=== PATIENT | female | born 1985 | race Caucasian/White ===

== ENCOUNTER 2016-06-08 10:55 | Emergency (ER) | payer MEDICAID, OTHER ==
[~2016-06-08] VITALS: Ht 154.9 cm; Wt 53.5 kg
[~2016-06-08 10:55] MED LIST: MOTR200T44 PO
[2016-06-08 11:11] VITALS: BP 122/72
[2016-06-08] MEDS ORDERED: THERPAK PO (11:19)
[2016-06-08] MEDS ORDERED: LIDO1SOL7 OR (11:33)
== END 2016-06-08 11:55 | disposition home or self-care (01) ==
LOC: M ED 11:44
DX: J02.9 Acute pharyngitis, unspecified (principal); F17.210 Nicotine dependence, cigarettes, uncomplicated; Z86.32 Personal history of gestational diabetes

== ENCOUNTER → 2017-05-25 | Outpatient (CLI) | payer OTHER | LOC: M WUC 12:37 | DX: S83.412A Sprain of medial collateral ligament of left knee, initial encounter (principal); X58.XXXA Exposure to other specified factors, initial encounter; Y92.9 Unspecified place or not applicable | CPT/HCPCS: 73564 ==

== ENCOUNTER 2017-05-26 11:34 | Emergency (ER) | payer OTHER ==
[2017-05-26] MEDS: ONDANSETRON 4 MG ORAL DISINTEGRATING TAB (S0181) PO (12:30)
[2017-05-26 12:58] LABS: BASO % 0.3 % (0.0-1.0); EOS # 0.1 10^3/uL (0.0-0.50); EOS % 0.5 % (0.0-3.0); HEMATOCRIT 41.1 % (36.0-47.0); IMMATURE GRANULOCYTE % 0.3 % (0-3.0); LYMPH # 1.9 10^3/uL (1.5-4.5); LYMPH % 14.5 % (24.0-44.0); MEAN CORPUSCULAR HEMOGLOBIN 31.4 pg (27.0-33.0); MEAN CORPUSCULAR HGB CONC 34.1 g/dl (32.0-36.5); MEAN CORPUSCULAR VOLUME 92.2 fl (80.0-96.0); MONO # 0.7 10^3/uL (0.0-0.8); MONO % 5.2 % (0.0-5.0); NEUTROPHILS # 10.2 10^3/uL (1.8-7.7); NEUTROPHILS % 79.2 % (36.0-66.0); PLATELET COUNT, AUTOMATED 315 10^3/uL (150-450); RED BLOOD COUNT 4.46 10^6/uL (4.00-5.40); RED CELL DISTRIBUTION WIDTH 13.2 % (11.5-14.5); WHITE BLOOD COUNT 12.8 10^3/uL (4.0-10.0)
[2017-05-26 13:25] LABS: ANION GAP 5 MEQ/L (8-16); BLOOD UREA NITROGEN 12 MG/DL (7-18); CALCIUM LEVEL 8.8 MG/DL (8.5-10.1); CARBON DIOXIDE LEVEL 27 MEQ/L (21-32); CHLORIDE LEVEL 107 MEQ/L (98-107); CREATININE FOR GFR 0.66 MG/DL (0.55-1.30); GLOMERULAR FILTRATION RATE > 60.0 (>60); GLUCOSE, FASTING 93 MG/DL (70-100); POTASSIUM SERUM 4.5 MEQ/L (3.5-5.1); SODIUM LEVEL 139 MEQ/L (136-145)
[2017-05-26 13:27] LABS: AMPHETAMINES LEVEL URINE NEGATIVE (NEGATIVE); BARBITURATES URINE NEGATIVE (NEGATIVE); BENZODIAZEPINES URINE NEGATIVE (NEGATIVE); CANNABINOIDS URINE POSITIVE (NEGATIVE); COCAINE METABOLITE URINE NEGATIVE (NEGATIVE); METHADONE URINE NEGATIVE (NEGATIVE); OPIATES URINE NEGATIVE (NEGATIVE); PHENCYCLIDINE URINE NEGATIVE (NEGATIVE)
[2017-05-27 08:59] LABS: BEDSIDE GLUCOSE 116 MG/DL (70-105)
== END 2017-05-26 14:34 | disposition home or self-care (01) ==
LOC: M ED 11:34
DX: R55 Syncope and collapse (principal); F17.210 Nicotine dependence, cigarettes, uncomplicated; Z86.32 Personal history of gestational diabetes
CPT/HCPCS: 93005

== ENCOUNTER 2018-04-08 13:39 | Emergency (ER) | payer MEDICAID, OTHER, SELFPAY ==
[~2018-04-08] VITALS: Ht 154.9 cm; Wt 52.3 kg
[2018-04-08 13:39] VITALS: BP 138/75
[~2018-04-08 13:39] MED LIST changes: +LIDO1SOL7 OR; +THERPAK PO
[2018-04-08] MEDS ORDERED: TESS100C PO (14:34)
== END 2018-04-08 14:45 | disposition home or self-care (01) ==
LOC: M ED 13:39
DX: J06.9 Acute upper respiratory infection, unspecified (principal); Z20.828 Contact with and (suspected) exposure to other viral communicable diseases; F17.210 Nicotine dependence, cigarettes, uncomplicated

== ENCOUNTER 2018-07-24 10:39 | Emergency (ER) | payer SELFPAY ==
[~2018-07-24] VITALS: Ht 154.9 cm; Wt 52.2 kg
[~2018-07-24 10:39] MED LIST changes: -LIDO1SOL7 OR; +LIDO1SOL8 OR; +TESS100C PO
[2018-07-24] MEDS ORDERED: cefTRIAXone SOD 1 GM in D5W MINI-BAG PLUS 50 ML IV ONE (11:30)
[2018-07-24] MEDS ORDERED: KETOROLAC 30 MG/ML VIAL (J1885) IV ONE (11:30)
[2018-07-24] MEDS ORDERED: NS 1,000 ML IV ONE (11:30)
[2018-07-24] MEDS ORDERED: ONDANSETRON 4MG/2ML VIAL (J2405) IV ONE (11:30)
[2018-07-24 11:56] LABS: BASO % 0.4 % (0.0-1.0); EOS # 0.1 10^3/uL (0.0-0.50); EOS % 0.9 % (0.0-3.0); HEMATOCRIT 40.5 % (36.0-47.0); HEMOGLOBIN 13.7 g/dl (12.0-15.5); LYMPH # 2.9 10^3/uL (1.5-4.5); LYMPH % 28.4 % (24.0-44.0); MEAN CORPUSCULAR HEMOGLOBIN 31.7 pg (27.0-33.0); MEAN CORPUSCULAR HGB CONC 33.8 g/dl (32.0-36.5); MEAN CORPUSCULAR VOLUME 93.8 fl (80.0-96.0); MONO # 0.7 10^3/uL (0.0-0.8); MONO % 6.6 % (0.0-5.0); NEUTROPHILS # 6.4 10^3/uL (1.8-7.7); NEUTROPHILS % 63.5 % (36.0-66.0); PLATELET COUNT, AUTOMATED 300 10^3/uL (150-450); RED BLOOD COUNT 4.32 10^6/uL (4.00-5.40); WHITE BLOOD COUNT 10.1 10^3/uL (4.0-10.0)
--- NOTE | 2018-07-24 12:15 | REP ---
Renal ultrasound for right flank pain: The right kidney measures 9.4 x 5.2 x 4.0 cm. Left kidney measures 10.2 x 4.6 x 4.7 cm. The kidneys are normal size. Renal cortical echogenicity is normal bilaterally. There are no renal calculi. There is no hydronephrosis. There are no solid or cystic renal masses. There are vascular artifacts in the renal vandana bilaterally, of no clinical significance. Bladder ultrasound: The bladder is incompletely distended and cannot be further evaluated. Impression: Negative renal ultrasound. Electronically Signed by Thor Ackerman MD 07/24/2018 12:06 P
[2018-07-24 12:29] LABS: BLOOD UREA NITROGEN 5 MG/DL (7-18); CREATININE FOR GFR 0.66 MG/DL (0.55-1.30); GLOMERULAR FILTRATION RATE > 60.0 (>60); GLUCOSE, FASTING 90 MG/DL (70-100); SODIUM LEVEL 141 MEQ/L (136-145)
[2018-07-24 12:30] LABS: CALCIUM LEVEL 8.7 MG/DL (8.5-10.1); CARBON DIOXIDE LEVEL 26 MEQ/L (21-32); CHLORIDE LEVEL 109 MEQ/L (98-107); POTASSIUM SERUM 3.9 MEQ/L (3.5-5.1)
[2018-07-24] MEDS ORDERED: CIPR-249 PO (13:26)
[2018-07-24] MEDS ORDERED: IBUP-1022 PO (13:26)
[2018-07-24 14:05] VITALS: BP 119/87
== END 2018-07-24 14:11 | disposition home or self-care (01) ==
LOC: M ED 10:39
DX: N10 Acute pyelonephritis (principal); N39.0 Urinary tract infection, site not specified; F17.210 Nicotine dependence, cigarettes, uncomplicated
CPT/HCPCS: 76775; 80048; 81001; 85025; 96365; 96366; 96375; 99284; J0696; J1885; J2405

== ENCOUNTER 2018-08-18 08:14 | Emergency (ER) | payer SELFPAY ==
[~2018-08-18] VITALS: Ht 154.9 cm; Wt 50.0 kg
[~2018-08-18 08:14] MED LIST changes: +CIPR-249 PO; +IBUP-1022 PO
[2018-08-18] MEDS ORDERED: AUGMENTIN 875 MG TAB PO ONE (09:30)
[2018-08-18] MEDS ORDERED: ONDANSETRON 4 MG ORAL DISINTEGRATING TAB (Q0162 PER 1MG) PO ONE (09:30)
[2018-08-18] MEDS ORDERED: AUGM875T28 PO (09:30)
[2018-08-18] MEDS ORDERED: NAPROXEN 250 MG TAB PO ONE (09:30)
[2018-08-18] MEDS ORDERED: ZOFR4TAB16 PO (09:30)
[2018-08-18] MEDS ORDERED: NAPR-837 PO (09:30)
[2018-08-18] MEDS ORDERED: ACETAMINOPHEN 500 MG TAB PO ONE (09:30)
[2018-08-18 09:33] VITALS: BP 118/82
== END 2018-08-18 09:42 | disposition home or self-care (01) ==
LOC: M ED 08:14
DX: J01.90 Acute sinusitis, unspecified (principal); H66.93 Otitis media, unspecified, bilateral; J44.9 Chronic obstructive pulmonary disease, unspecified; F17.210 Nicotine dependence, cigarettes, uncomplicated
CPT/HCPCS: 87880; 99284; Q0162

== ENCOUNTER 2019-11-30 00:51 | Emergency (ER) | payer SELFPAY ==
[~2019-11-30] VITALS: Ht 154.9 cm; Wt 53.9 kg
[2019-11-30 00:51] VITALS: BP 134/83
== END 2019-11-30 01:58 | disposition left against medical advice (07) ==
LOC: M ED 00:51
DX: Z53.21 Procedure and treatment not carried out due to patient leaving prior to being seen by health care provider (principal)

== ENCOUNTER → 2019-11-30 | Outpatient (REF) | payer OTHER ==
[~2019-11-30] MED LIST changes: +AUGM875T28 PO; -LIDO1SOL8 OR; +LIDO2SOL17 OR; +NAPR-837 PO; +ZOFR4TAB16 PO
[2019-11-30 19:06] LABS: APPEARANCE, URINE CLOUDY (CLEAR); BACTERIA, URINE AUTO 1+ (NEGATIVE); BILIRUBIN, URINE AUTO NEGATIVE (NEGATIVE); BLOOD, URINE BLOOD 1+ (NEGATIVE); COLOR, URINE YELLOW (YELLOW); GLUCOSE, URINE (UA) AUTO NEGATIVE (NEGATIVE); KETONE, URINE AUTO NEGATIVE (NEGATIVE); LEUKOCYTE ESTERASE, URINE AUTO 2+ (NEGATIVE); MUCUS, URINE SMALL (NEGATIVE); NITRITE, URINE AUTO POSITIVE (NEGATIVE); PROTEIN, URINE AUTO NEGATIVE (NEGATIVE); RBC, URINE AUTO 5 /HPF (0-3); SPECIFIC GRAVITY URINE AUTO 1.019 (1.002-1.035); SQUAMOUS EPITHELIAL CELL UR AU 14 /HPF (0-6); UROBILINOGEN, URINE AUTO 0.2 mg/dL (0.0-2.0); WBC, URINE AUTO 27 /HPF (0-3)
== END ==
LOC: M LAB REF 18:01
PROVIDERS: ATTEND Physician Assistant Medical
DX: N39.0 Urinary tract infection, site not specified (principal)

== ENCOUNTER 2020-08-09 15:23 | Emergency (ER) | payer OTHER ==
[~2020-08-09] VITALS: Ht 154.9 cm; Wt 50.7 kg
[2020-08-09] MEDS ORDERED: EPINEPHrine INJ 1 MG/ML 1ML AMP As Ordered ONE (15:28)
[2020-08-09] MEDS ORDERED: EPINEPHrine INJ 1 MG/ML 1ML AMP IM STA (15:30)
[2020-08-09] MEDS ORDERED: FAMOTIDINE INJ 20MG/2ML VIAL (S0028 PER 1) As Ordered ONE (15:30)
[2020-08-09] MEDS ORDERED: diphenhydrAMINE 50MG/ML VIAL (J1200) IV ONE (15:30)
[2020-08-09] MEDS ORDERED: diphenhydrAMINE 50MG/ML VIAL (J1200) As Ordered ONE (15:30)
[2020-08-09] MEDS ORDERED: FAMOTIDINE INJ 20MG/2ML VIAL (S0028 PER 1) IVP ONE (15:30)
[2020-08-09] MEDS ORDERED: ONDANSETRON 4MG/2ML VIAL As Ordered ONE (15:34)
[2020-08-09] MEDS ORDERED: methylPREDNISolone 125MG 2ML VIAL IV ONE (15:35)
[2020-08-09] MEDS ORDERED: ONDANSETRON 4MG/2ML VIAL IV ONE (15:35)
[2020-08-09] MEDS ORDERED: IPRATROPIUM 0.5MG/ALBUTEROL 2.5MG INH SOL UD 3ML (DUONEB) NEB ONE (15:40)
[2020-08-09 15:47] LABS: HEMATOCRIT 49.6 % (36.0-47.0); HEMOGLOBIN 17.1 g/dl (12.0-15.5); MEAN CORPUSCULAR HEMOGLOBIN 32.4 pg (27.0-33.0); MEAN CORPUSCULAR HGB CONC 34.5 g/dl (32.0-36.5); MEAN CORPUSCULAR VOLUME 93.9 fl (80.0-96.0); PLATELET COUNT, AUTOMATED 405 10^3/uL (150-450); RED BLOOD COUNT 5.28 10^6/uL (4.00-5.40); WHITE BLOOD COUNT 11.3 10^3/uL (4.0-10.0)
[2020-08-09 15:49] VITALS: O2SAT 96
[2020-08-09 16:10] LABS: ALBUMIN 4.1 GM/DL (3.2-5.2); ALT/SGPT 20 U/L (12-78); BILIRUBIN,DIRECT 0.3 MG/DL (0.0-0.2); BILIRUBIN,TOTAL 1.1 MG/DL (0.2-1.0); BLOOD UREA NITROGEN 8 MG/DL (7-18); CALCIUM LEVEL 9.4 MG/DL (8.5-10.1); CARBON DIOXIDE LEVEL 24 MEQ/L (21-32); CHLORIDE LEVEL 110 MEQ/L (98-107); CREATININE FOR GFR 0.77 MG/DL (0.55-1.30); GLOMERULAR FILTRATION RATE > 60.0 (>60); GLUCOSE, FASTING 128 MG/DL (70-100); POTASSIUM SERUM 4.1 MEQ/L (3.5-5.1); SODIUM LEVEL 141 MEQ/L (136-145); TOTAL PROTEIN 7.2 GM/DL (6.4-8.2)
[2020-08-09 16:14] LABS: HCG, SERUM QUALITATIVE NEGATIVE (NEGATIVE)
[2020-08-09 16:19] LABS: ATYPICAL LYMPH 8 % (0-5); EOSINOPHILS 1 % (0-3); LYMPHOCYTES 41 % (16-44); MONOCYTES 3 % (0-5); NEUTROPHILS 46 % (28-66); PLATELET ESTIMATE NORMAL (NORMAL)
[2020-08-09 16:20] LABS: PLATELET CLUMPS SMALL AMT
--- NOTE | 2020-08-09 16:33 | REP ---
INDICATION: sob. COMPARISON: None. TECHNIQUE: Single portable AP view of the chest was performed. FINDINGS: There is no acute infiltrate or pulmonary edema. Lungs are clear. The heart is not significantly enlarged. The mediastinal silhouette is unremarkable. The visualized osseous structures are intact. IMPRESSION: No acute pulmonary disease. <Electronically signed by Thor Ness > 08/09/20 [id number]
[2020-08-09] MEDS ORDERED: EPIP0.3I2 IM (18:20)
[2020-08-09 18:35] VITALS: BP 133/83
--- NOTE | 2020-08-09 20:34 | ECGEPIP ---
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
== END 2020-08-09 18:44 | disposition home or self-care (01) ==
LOC: M ED 15:23
DX: T78.2XXA Anaphylactic shock, unspecified, initial encounter (principal); Y92.9 Unspecified place or not applicable; Y93.9 Activity, unspecified; F17.200 Nicotine dependence, unspecified, uncomplicated; F12.10 Cannabis abuse, uncomplicated
CPT/HCPCS: 71045; 80048; 80076; 84703; 85025; 93005; 93041; 94640; 94760; 96372; 96374; 96375; 99285; J0171; J1200; J2405; J2930

== ENCOUNTER → 2020-11-07 | Outpatient (REF) | payer OTHER ==
[~2020-11-07] MED LIST changes: +EPIP0.3I2 IM
[2020-11-07 16:51] LABS: APPEARANCE, URINE CLOUDY (CLEAR); BACTERIA, URINE AUTO 1+ (NEGATIVE); BILIRUBIN, URINE AUTO NEGATIVE (NEGATIVE); BLOOD, URINE BLOOD 2+ (NEGATIVE); COLOR, URINE AMBER (YELLOW); GLUCOSE, URINE (UA) AUTO NEGATIVE (NEGATIVE); KETONE, URINE AUTO NEGATIVE (NEGATIVE); LEUKOCYTE ESTERASE, URINE AUTO 2+ (NEGATIVE); MUCUS, URINE SMALL (NEGATIVE); NITRITE, URINE AUTO POSITIVE (NEGATIVE); PROTEIN, URINE AUTO 1+ mg/dL (NEGATIVE); RBC, URINE AUTO 14 /HPF (0-3); SPECIFIC GRAVITY URINE AUTO 1.023 (1.002-1.035); SQUAMOUS EPITHELIAL CELL UR AU 17 /HPF (0-6); UROBILINOGEN, URINE AUTO 0.2 mg/dL (0.0-2.0); WBC, URINE AUTO 11 /HPF (0-3)
== END ==
LOC: M LAB REF 15:13
PROVIDERS: ATTEND Physician Assistant
DX: N39.0 Urinary tract infection, site not specified (principal)

== ENCOUNTER 2021-10-20 18:42 | Emergency (ER) | payer OTHER ==
[~2021-10-20] VITALS: Ht 154.9 cm; Wt 47.3 kg
[2021-10-20] MEDS ORDERED: ONDANSETRON 4MG 2ML VIAL IV ONE (20:05)
[2021-10-20] MEDS ORDERED: MORPHINE 4 MG/ML 1ML VIAL/SYRINGE IV ONE (20:05)
[2021-10-20 20:17] LABS: HCG, SERUM QUALITATIVE NEGATIVE (NEGATIVE)
[2021-10-20 20:23] LABS: BASO % 0.3 % (0.0-1.0); EOS # 0.8 10^3/uL (0.0-0.5); EOS % 8.5 % (0.0-3.0); HEMATOCRIT 42.6 % (36.0-47.0); HEMOGLOBIN 14.8 g/dl (12.0-15.5); LYMPH # 1.8 10^3/uL (1.5-5.0); LYMPH % 18.6 % (24.0-44.0); MEAN CORPUSCULAR HEMOGLOBIN 32.5 pg (27.0-33.0); MEAN CORPUSCULAR HGB CONC 34.7 g/dl (32.0-36.5); MEAN CORPUSCULAR VOLUME 93.4 fl (80.0-96.0); MONO # 0.8 10^3/uL (0.0-0.8); MONO % 8.2 % (2.0-8.0); NEUTROPHILS # 6.2 10^3/uL (1.5-8.5); NEUTROPHILS % 64.1 % (36.0-66.0); PLATELET COUNT, AUTOMATED 271 10^3/uL (150-450); RED BLOOD COUNT 4.56 10^6/uL (4.00-5.40); WHITE BLOOD COUNT 9.7 10^3/uL (4.0-10.0)
[2021-10-20 20:25] LABS: ALBUMIN 3.7 GM/DL (3.2-5.2); ALT/SGPT 20 U/L (12-78); BLOOD UREA NITROGEN 10 MG/DL (7-18); CARBON DIOXIDE LEVEL 22 MEQ/L (21-32); CHLORIDE LEVEL 112 MEQ/L (98-107); CREATININE FOR GFR 0.79 MG/DL (0.55-1.30); ETHYL ALCOHOL (ETHANOL) < 0.003 % (0.000-0.010); GLOMERULAR FILTRATION RATE > 60.0 (>60); GLUCOSE, FASTING 96 MG/DL (70-100); LIPASE 137 U/L (73-393); POTASSIUM SERUM 3.5 MEQ/L (3.5-5.1); SODIUM LEVEL 143 MEQ/L (136-145); TOTAL PROTEIN 6.6 GM/DL (6.4-8.2)
[2021-10-20] MEDS ORDERED: diazePAM 10MG/2ML SYRINGE (J3360 PER 5MG) IV ONE (20:50)
[2021-10-20 22:59] LABS: RSV AMPLIFICATION NEGATIVE (NEGATIVE)
[2021-10-20 23:01] VITALS: BP 127/80
== END 2021-10-20 23:24 | disposition short-term general hospital (02) ==
LOC: M ED 18:42
DX: S32.010A Wedge compression fracture of first lumbar vertebra, initial encounter for closed fracture (principal); M48.061 Spinal stenosis, lumbar region without neurogenic claudication; W17.81XA Fall down embankment (hill), initial encounter; Y92.410 Unspecified street and highway as the place of occurrence of the external cause; F17.200 Nicotine dependence, unspecified, uncomplicated
CPT/HCPCS: 70450; 72125; 72128; 72131; 80053; 82077; 83690; 84703; 85025; 87631; 96374; 96375; 99285; J2270; J2405; J3360

== ENCOUNTER → 2022-07-05 | Outpatient (REF) | payer OTHER, MEDICAID ==
[~2022-07-05] MED LIST changes: +LIDO15SO4 OR; -LIDO2SOL17 OR
[2022-07-05 19:15] LABS: APPEARANCE, URINE CLOUDY (CLEAR); BACTERIA, URINE AUTO 1+ (NEGATIVE); BILIRUBIN, URINE AUTO NEGATIVE (NEGATIVE); BLOOD, URINE BLOOD 1+ (NEGATIVE); COLOR, URINE YELLOW (YELLOW); GLUCOSE, URINE (UA) AUTO NEGATIVE (NEGATIVE); KETONE, URINE AUTO NEGATIVE (NEGATIVE); LEUKOCYTE ESTERASE, URINE AUTO 2+ (NEGATIVE); NITRITE, URINE AUTO POSITIVE (NEGATIVE); PROTEIN, URINE AUTO 2+ mg/dL (NEGATIVE); RBC, URINE AUTO 14 /HPF (0-3); SPECIFIC GRAVITY URINE AUTO 1.016 (1.002-1.035); SQUAMOUS EPITHELIAL CELL UR AU 4 /HPF (0-6); UROBILINOGEN, URINE AUTO 0.2 mg/dL (0.0-2.0); WBC, URINE AUTO TNTC /HPF (0-3)
== END ==
LOC: M LAB REF 16:36
PROVIDERS: ATTEND Physician Assistant
DX: N39.0 Urinary tract infection, site not specified (principal)

== ENCOUNTER 2024-07-03 14:49 | Emergency (ER) | payer OTHER, SELFPAY ==
[~2024-07-03] VITALS: Ht 154.9 cm; Wt 54.7 kg
[~2024-07-03 14:49] MED LIST changes: -LIDO15SO4 OR; +LIDO15SO8 OR
[2024-07-03 15:01] VITALS: BP 186/98; TEMP 98.4; O2SAT 99
== END 2024-07-03 15:06 | disposition left against medical advice (07) ==
LOC: M ED 14:49
DX: Z53.21 Procedure and treatment not carried out due to patient leaving prior to being seen by health care provider (principal)